=== PATIENT | female | born 1995 | race Caucasian/White ===

== ENCOUNTER 2020-07-24 09:17 | Day surgery (SDC) | payer OTHER ==
[2020-07-18 16:56] LABS: BASOPHIL % 0.3 % (0-2); PLATELET COUNT 232 x10^3mcL (130-400); RED CELL DISTRIBUTION WIDTH 12.9 % (11.5-14.5)
[2020-07-18 17:22] LABS: ALBUMIN 4.2 g/dL (3.4-5.0); ALKALINE PHOSPHATASE 103 U/L (46-116); ALT/SGPT 18 U/L (14-59); AST/SGOT 19 U/L (15-37); BILIRUBIN TOTAL 0.3 mg/dL (0.20-1.00); CALCIUM 9.7 mg/dL (8.5-10.1); CARBON DIOXIDE 28.9 mmol/L (21-32); CHLORIDE SERUM 101 mmol/L (98-107); GFR1 > 60 mL/min; GLUCOSE SERUM 97 mg/dL (74-106); POTASSIUM SERUM 4.6 mmol/L (3.5-5.1); SODIUM SERUM 138 mmol/L (136-145)
[2020-07-18 17:34] LABS: TOTAL PROTEIN, SERUM 8.4 g/dL (6.4-8.2)
[~2020-07-24] VITALS: Ht 160 cm; Wt 61.2 kg
[2020-07-24 09:36] VITALS: BP 104/54
[2020-07-24 15:40] VITALS: BP 103/58
== END 2020-07-24 15:30 | disposition home or self-care (01) ==
LOC: DS 09:17 → OR 10:30 → DS 11:30 → OR 11:30 → DS 15:30
PROVIDERS: ATTEND Surgery
DX: K42.9 Umbilical hernia without obstruction or gangrene (principal); K43.2 Incisional hernia without obstruction or gangrene; D64.9 Anemia, unspecified; Z98.891 History of uterine scar from previous surgery; Z20.828 Contact with and (suspected) exposure to other viral communicable diseases; Z90.721 Acquired absence of ovaries, unilateral; Z79.899 Other long term (current) drug therapy
CPT/HCPCS: J0690; J0694; J1170; J1885; J2250; J2405; J3010; J3490; U0003